=== PATIENT | female | born 1990 | race African-American/Black ===

== ENCOUNTER 2017-11-26 18:58 | Emergency (ER) | payer SELFPAY ==
[~2017-11-26] VITALS: Ht 162.6 cm; Wt 90.0 kg
[~2017-11-26 18:58] MED LIST: ALBU8I INH; CEPH500C3 PO; PREN0.01 PO
[2017-11-26 18:59] VITALS: BP 146/75; PULSE 84; RESP 20; TEMP 98.4; O2SAT 100
== END 2017-11-26 20:17 | disposition left against medical advice (07) ==
LOC: NED 18:58
DX: Z53.21 Procedure and treatment not carried out due to patient leaving prior to being seen by health care provider (principal)
CPT/HCPCS: 99281

== ENCOUNTER 2018-03-02 14:54 | Emergency (ER) | payer SELFPAY | END 2018-03-02 15:15 | disposition left against medical advice (07) | LOC: NED 14:54 | DX: H57.10 Ocular pain, unspecified eye (principal) | CPT/HCPCS: 99281 ==